=== PATIENT | female | born 1990 | race Caucasian/White ===

== ENCOUNTER → 2017-06-23 | Outpatient (CLI) | payer OTHER ==
--- NOTE | 2017-06-23 22:03 | US ---
EXAMINATION TYPE: US OB >= 14 wk fetus DATE OF EXAM: 06/23/2017 COMPARISON: None CLINICAL HISTORY: 26-year-old female Z36 Confirm dates; TECHNIQUE: Transabdominal (TA) FINDINGS: GESTATIONAL AGE / DATING Physician Established: Not yet established Dates by LMP: (16 weeks/4 days) EDC: 12/04/2017 Dates by First Scan: No previous; this is first scan Dates by Current Scan: (17 weeks/2 days) EDC: 11/29/2017 Beta HCG (if available): NA SURVEY IUP: Single PLACENTA: Posterior PREVIA: No Previa. The caudal placental margin measures approximately 3.7 cm from the internal cervi adolfo os. WESTON: 11.7 cm Normal CERVICAL LENGTH (transabdominal: norm > 3.0cm): 3.4 cm BIOMETRY PRESENTATION: Breech LIE: Oblique BPD: 3.8 cm 17 weeks / 4 days HC: 13.4 cm 16 weeks / 6 days AC: 11.2 cm 17 weeks / 0 days FL: 2.4 cm 17 weeks / 2 days ESTIMATED WEIGHT IN GRAMS: 184.0 grams ESTIMATED WEIGHT IN LBS/OZ: 0 lbs. 6 oz. WEIGHT PERCENTAGE BASED ON ESTABLISHED DATES: 81.4% HC/AC: 1.19 Normal FL/AC: 21.67 Normal HEART RATE: 147 bpm RHYTHM: Normal GEOGRAPHY TEACHER NOTES: Single, live IUP,17 weeks/2 days,EDC: 11/29/2017 , HR 147bpm. IMPRESSION: 1. Single live intrauterine with estimated gestational age of 16 weeks 4 days by LMP. Curre nt ultrasound biometry is larger (17 weeks 2 days) placing the gestation at the 81 percentile for [facility] ght. 2. Slightly low-lying posterior placenta with the placental tip located 3.7 cm from the internal cerv ical os. 3. Complete survey recommended at 18-20 weeks.
== END | disposition home or self-care (01) ==
LOC: RADUSWWP 15:26
PROVIDERS: ATTEND Obstetrics & Gynecology
DX: O44.42 Low lying placenta NOS or without hemorrhage, second trimester (principal); Z3A.16 16 weeks gestation of pregnancy
CPT/HCPCS: 76805

== ENCOUNTER → 2017-07-14 | Outpatient (CLI) | payer OTHER ==
--- NOTE | 2017-07-15 07:47 | US ---
EXAMINATION TYPE: US OB anatomy transabd DATE OF EXAM: 07/14/2017 COMPARISON: US HISTORY: O36.62X0 Second trimester large for dates 2nd trimester anatomy scan, pt has no complaints at this time TECHNIQUE: Transabdominal (TA) EXAM MEASUREMENTS: GESTATIONAL AGE / DATING Physician Established: (19 weeks/3 days) EDC: 12/05/2017 Dates by LMP: (19 weeks/4 days) EDC: 12/04/2017 Dates by First Scan: (20 weeks/2 days) EDC: 11/29/2017 Dates by Current Scan for: (19 weeks/6 days) EDC: 12/02/2017 SURVEY IUP: Single PLACENTA: Posterior PREVIA: No previa WESTON: 15.6 cm Normal CERVICAL LENGTH (transabdominal: norm > 3.0cm): 3.9 cm BIOMETRY PRESENTATION: Breech BPD: 4.5 cm 19 weeks / 5 days HC: 16.9 cm 19 weeks / 4 days AC: 14.6 cm 20 weeks / 0 days FL: 3.1 cm 19 weeks / 5 days ESTIMATED WEIGHT IN GRAMS: 310 grams ESTIMATED WEIGHT IN LBS/OZ: 0 lbs. 11 oz. WEIGHT PERCENTAGE BASED ON ESTABLISHED DATE: 64 % HC/AC: 1.16 Normal FL/AC: 21 Normal HEART RATE: 156 bpm RHYTHM: Normal ANATOMY SEEN (within normal limits): * Lateral Vent (< 1 cm) 0.6 cm * Cisterna Magna (< 1.1 cm) 0.3 cm * Nuchal Fold (< 0.6 cm) 0.3 cm * Cerebellum (varies with age) 1.7 cm Choroid Plexus (bilateral) Midline Falx Cavus Septi Pellucidi Stomach Situs Nose / Lips Diaphragm Kidneys (bilateral) Bladder Cord Insert Three Vessel Cord Longitudinal Spine Transverse Spine Arms (bilateral) Legs (bilateral) ANATOMY NOT SEEN: Four Chamber Heart Outflow tracts: LVOT/RVOT MATERNAL WALL MEASUREMENT: 4.9 cm from skin to anterior uterine wall (if exam limited due to body quinn bitus). Pt returning for OB CALL BACK, July 28 @3:40 p.m. IMPRESSION: 1. Single intrauterine gestation estimated at 19 weeks 6 days gestation based on current ultrasound m easurements. This would have a calculated EDC of 12/02/2017. Cardiac activity measures 156 bpm. 2. Examination is incomplete, patient recalled for additional anatomy visualization.
== END | disposition home or self-care (01) ==
LOC: RADUSWWP 15:39
PROVIDERS: ATTEND Obstetrics & Gynecology
DX: O36.62X0 Maternal care for excessive fetal growth, second trimester, not applicable or unspecified (principal); Z3A.19 19 weeks gestation of pregnancy
CPT/HCPCS: 76811

== ENCOUNTER → 2017-07-28 | Outpatient (CLI) | payer OTHER ==
--- NOTE | 2017-07-29 07:15 | US ---
EXAMINATION TYPE: US OB Call Back DATE OF EXAM: 07/28/2017 COMPARISON: Prior ultrasound exams June 23, 2017 and July 14, 2017. CLINICAL HISTORY: OB CALL BACK. Pt called back for 4 chamber heart and outflow tracts GESTATIONAL AGE / DATING Dates by Initial Survey Scan: (21 weeks/4 days) EDC: 12/04/2017 HEART RATE: 152 bpm RHYTHM: Normal ANATOMY SEEN (second anatomic survey look): Four Chamber Heart: wnl Outflow tracts:? LVOT= wnl ANATOMY STILL NOT SEEN (requiring an additional callback appt): RVOT- fetus spine up and large maternal body habitus Pt returning August 11 @ 12:20 to attempt RVOT images Repeat imaging shows satisfactory visualization of four-chamber heart and left ventricular outflow tr ack during real-time scanning and on still images saved. There is still suboptimal visualization of r ight ventricular outflow tract. IMPRESSION: As above
== END | disposition home or self-care (01) ==
LOC: RADUSWWP 15:35
PROVIDERS: ATTEND Obstetrics & Gynecology
DX: Z03.73 Encounter for suspected fetal anomaly ruled out (principal)

== ENCOUNTER 2017-11-02 10:25 | Outpatient (CLI) | payer OTHER ==
[2017-11-02 12:05] VITALS: BP 133/79; PULSE 83; RESP 16; TEMP 97.4
--- NOTE | 2017-11-04 11:36 | P.MSEPDOC ---
Presenting Problems - Arrival Data Date of Arrival on Unit: 11/02/17 Time of Arrival on Unit: 10:20 Mode of Transport: Ambulatory - Complaint OB-Reason for Admission/Chief Complaint: Possible Onset of Labor Comment: contractions since 129 Medical History - Information : 1 Para: 0 Term: 0 : 0 Abortions: Spontaneous or Elective: 0 Number of Living Children: 0 - Gestational Age Gestational Age by KRISHNA (wks/days): 35 Weeks and 2 Days Review of Systems - Review of Systems Constitutional: No problems Breast: No problems ENT: No problems Cardiovascular: No problems Respiratory: No problems Gastrointestinal: No problems Genitourinary: No problems Musculoskeletal: No problems Neurological: No problems Skin: No problems Vital Signs - Temperature Temperature: 97.4 F Temperature Source: Temporal Artery Scan - Pulse Right Brachial Pulse Rate: 83 Pulse Assessment Method: Automatic Cuff - Respirations Respiratory Rate: 16 Oxygen Delivery Method: Room Air - Blood Pressure Right Arm Blood Pressure: 133/79 Blood Pressure Mean: 97 Blood Pressure Source: Automatic Cuff Medical Screen Scoring (Pre) - Cervical Exam Dilation: 1-3 cm = 1 Membranes: Intact - Uterine Contractions Frequency: > 5 minutes apart = 1 Duration: N/A Intensity: N/A - Maternal Vital Signs Maternal Temperature: N/A Maternal Blood Pressure: N/A Signs of Preeclampsia: N/A Maternal Respirations: N/A - Pain Assessment Pain Location and Character: Back Pain Scale Used: Numeric (1 - 10) Pain Intensity: 7 Pain Description: *Acute Pain Frequency: Intermittent Pain Duration: 5 Pain Duration Units: Hours Pain Behavior: Moving Slowly Pain Aggravating Factors: Contractions - Maternal Trauma Maternal Trauma: N/A - Assessment Baseline FHR: 135 Heart Rate - NICHD Category: Category II (Indeterminate) = 3 Position: N/A Station: N/A - Total Score Total Score (Pre): 5 - Level of Risk Level of Risk: Low (0-5) Physician Notification (Pre) - Physician Notified Physician Notified Date: 11/02/17 Physician Notified Time: 11:24 Physician/Practitioner Notifed:: tez Spoke With: tez New Order Received: Yes - Notification Comment Comment: if no cervical change may be discharged home Disposition - Disposition OB Disposition: Discharge to home Discharge Date: 11/02/17 Discharge Time: 11:51 I agree with the RN Medical Screening Exam: Yes Risk & Benefit of care provided described in d/c instruction: Yes Diagnosis: FALSE LABOR BEFORE 37 COMPLETED WEEKS OF GEST, THIRD TRI
== END 2017-11-02 12:08 | disposition home or self-care (01) ==
LOC: FBPOP 10:25
PROVIDERS: ATTEND Obstetrics & Gynecology
DX: O47.03 False labor before 37 completed weeks of gestation, third trimester (principal); Z3A.35 35 weeks gestation of pregnancy
CPT/HCPCS: 59025; G0463; 99213

== ENCOUNTER 2017-11-27 06:06 | Inpatient (IN) | payer OTHER ==
[2017-11-24 14:30] VITALS: BMI 50.1
[2017-11-27] MEDS ORDERED: CITRIC ACID-SODIUM CITRATE 15 ML CUP PO ONE (06:30)
[2017-11-27] MEDS ORDERED: ceFAZolin 3 GM in SODIUM CHLORIDE 0.9% 100 ML IVPB ONE (06:30)
[2017-11-27] MEDS ORDERED: LACTATED RINGERS 1,000 ML IV ONE (06:30)
[2017-11-27 06:41] LABS: Basophils % (A) 0 %; Eosinophils # (A) 0.1 k/uL (0-0.7); Eosinophils % (A) 1 %; HCT 35.4 % (34.0-46.0); HGB 11.5 gm/dL (11.4-16.0); Lymphocytes # (A) 1.9 k/uL (1.0-4.8); Lymphocytes % (A) 23 %; MCH 24.4 pg (25.0-35.0); MCHC 32.5 g/dL (31.0-37.0); Mean Platelet Volume 9.6; Microcytosis Slight; Monocytes # (A) 0.4 k/uL (0-1.0); Monocytes % (A) 5 %; Neutrophils # (A) 5.6 k/uL (1.3-7.7); Neutrophils % (A) 68 %; Platelet Count 229 k/uL (150-450); RBC 4.71 m/uL (3.80-5.40); RDW 14.4 % (11.5-15.5); WBC 8.2 k/uL (3.8-10.6)
--- NOTE | 2017-11-27 07:30 | P.HPOB ---
History of Present Illness H&P Date: 11/27/17 Chief Complaint: Breech 27 year old presents at 39 weeks for primary low transverse for breech presentation. Review of Systems All systems: negative Constitutional: Denies chills, Denies fever Eyes: denies blurred vision, denies pain Ears, nose, mouth and throat: Denies headache, Denies sore throat Cardiovascular: Denies chest pain, Denies shortness of breath Respiratory: Denies cough Gastrointestinal: Denies abdominal pain, Denies diarrhea, Denies nausea, Denies vomiting Genitourinary: Denies dysuria, Denies hematuria Musculoskeletal: Denies myalgias Integumentary: Denies pruritus, Denies rash Neurological: Denies numbness, Denies weakness Psychiatric: Denies anxiety, Denies depression Endocrine: Denies fatigue, Denies weight change Past Medical History Past Medical History: Asthma, Skin Disorder Additional Past Medical History / Comment(s): PSORIAS History of Any Multi-Drug Resistant Organisms: None Reported Past Surgical History: No Surgical Hx Reported Past Anesthesia/Blood Transfusion Reactions: No Reported Reaction Additional Past Anesthesia/Blood Transfusion Reaction / Comment(s): NO PRIOR SX HX Past Psychological History: Anxiety, Depression Additional Psychological History / Comment(s): NOT ON ANY MEDS AT THIS TIME Smoking Status: Never smoker Past Alcohol Use History: None Reported Past Drug Use History: None Reported - Past Family History Mother Family Medical History: No Reported History Father Family Medical History: Coronary Artery Disease (CAD) Medications and Allergies Home Medications Medication Instructions Recorded Confirmed Type Pnv No.95/Ferrous Fum/Folic AC 1 each PO DAILY 11/24/17 11/27/17 History [ Multivitamin Tablet] Allergies Allergy/AdvReac Type Severity Reaction Status Date / Time No Known Allergies Allergy Verified 11/27/17 06:20 Exam Osteopathic Statement: *. No significant issues noted on an osteopathic structural exam other than those noted in the History and Physical/Consult. Vital Signs Temp Pulse Resp BP 11/27/17 06:20 96.0 F L 77 16 129/84 Intake and Output 11/26/17 11/27/17 11/27/17 22:59 06:59 14:59 Other: Weight 124.284 kg Heart: Regular rate and rhythm Lungs: Clear to auscultation bilaterally Abdomen: Soft, nontender Extremities: Negative Homans sign Results Result Diagrams: 11/27/17 06:29 Abnormal Lab Results - Last 24 Hours (Table) 11/27/17 Range/Units 06:29 MCV 75.0 L (80.0-100.0) fL MCH 24.4 L (25.0-35.0) pg Assessment and Plan (1) Breech presentation Current Visit: Yes Status: Acute Code(s): O32.1XX0 - MATERNAL CARE FOR BREECH PRESENTATION, UNSP SNOMED Code(s): 8547777 (2) 39 weeks gestation of Current Visit: Yes Status: Acute Code(s): Z3A.39 - 39 WEEKS GESTATION OF SNOMED Code(s): 79851751 Plan: 1. Primary low transverse
[2017-11-27] MEDS: LACTATED RINGERS 1,000 ML IV SCH ×4 (08:12→20:00)
[2017-11-27] MEDS ORDERED: DEXAMETHASONE SOD PHOS (MDV) 100 MG/10 ML VIAL ONE (08:46)
[2017-11-27] MEDS ORDERED: MORPHINE SULFATE (PF) 0.3 MG/0.3 ML SYR ONE (08:46)
[2017-11-27] MEDS ORDERED: diphenhydrAMINE 50 MG/ML 1 ML VIAL ONE (08:46)
[2017-11-27] MEDS ORDERED: KETOROLAC 30 MG/ML 1 ML VIAL ONE (08:46)
[2017-11-27] MEDS ORDERED: fentaNYL (PF) 50 MCG/ML 2 ML AMP ONE (08:46)
[2017-11-27] MEDS ORDERED: NALBUPHINE 10 MG/ML VIAL (10ML MDV) ONE (08:46)
[2017-11-27] MEDS ORDERED: ONDANSETRON 4 MG/2 ML VIAL ONE (08:46)
[2017-11-27] MEDS ORDERED: OXYTOCIN 10 UNIT/ML 1 ML VIAL ONE (08:46)
[2017-11-27] MEDS ORDERED: diphenhydrAMINE 50 MG/ML 1 ML VIAL IVP PRN ×2 (09:37)
[2017-11-27] MEDS ORDERED: SIMETHICONE 80 MG CHEWABLE PO PRN (09:37)
[2017-11-27] MEDS ORDERED: LANOLIN CREAM 5 GM TUBE TOPICAL PRN (09:37)
[2017-11-27] MEDS ORDERED: KETOROLAC 30 MG/ML 1 ML VIAL IVP PRN (09:37)
[2017-11-27] MEDS ORDERED: ZOLPIDEM 5 MG TAB PO PRN (09:37)
[2017-11-27] MEDS ORDERED: METOCLOPRAMIDE 5 MG/ML 2 ML VIAL IVP PRN (09:37)
[2017-11-27] MEDS ORDERED: ACETAMINOPHEN TAB 325 MG TAB PO PRN (09:37)
[2017-11-27] MEDS ORDERED: diphenhydrAMINE 25 MG CAP PO PRN (09:37)
[2017-11-27] MEDS ORDERED: Rhogam IMMUNE GLOBULIN 1,500 UNIT/1 ML IM ONE (09:37)
[2017-11-27] MEDS ORDERED: diphenhydrAMINE 50 MG CAP PO PRN (09:37)
[2017-11-27] MEDS ORDERED: ONDANSETRON 4 MG/2 ML VIAL IVP PRN (09:37)
[2017-11-27] MEDS ORDERED: NALOXONE 0.4 MG/ML 1 ML VIAL IV PRN (09:37)
--- NOTE | 2017-11-27 09:44 | P.OP ---
Date of Procedure: 11/27/17 Preoperative Diagnosis: 1. at 39 weeks 2. Breech Postoperative Diagnosis: Same Procedure(s) Performed: Primary low transverse Anesthesia: spinal Surgeon: Isaura Larry [employer]cher #1: Ne Navarro Estimated Blood Loss (ml): 400 IV fluids (ml): 800 Urine output (ml): 100 Pathology: other (Placenta) Condition: stable Disposition: floor Operative Findings: Viable female, Apgars 8, 9, weight 8 lbs. 3 oz. Description of Procedure: Patient was taken to the operating room where spinal anesthesia was found be adequate. She was prepped and draped in normal sterile fashion in dorsal supine position with a leftward tilt. Pfannenstiel skin incision was made the scalpel and carried through to the underlying layer of fascia with the scalpel. Fascia was incised in midline and carried bilaterally with the Ramirez scissors. The superior aspect of the fascial incision was grasped with Terry clamps elevated and the underlying rectus muscles dissected off with the Ramirez's. Attention was then turned to inferior aspect of same incision which in a similar fashion was grasped tented up and the underlying rectus muscles dissected off with the Ramirez's. The rectus muscles were the midline and the peritoneum was identified tented up and entered sharply with the scalpel. The incision was extended superiorly and inferiorly with good visualization of the bladder. The bladder blade was inserted and the vesicouterine peritoneum was incised the Metzenbaums then carried bilaterally and bladder flap created digitally. A low transverse incision was then made on the uterus with the scalpel. This was carried bilaterally and digital manner. Infant was found in a waldemar breech presentation and delivered in the normal breech fashion. Apgars 8,9, weight 8 lbs. 3 oz. Placenta delivered manually, intact with three-vessel cord. The uterus is exteriorized and cleared of all clots and debris. The uterine incision was closed with 0 Vicryl in a running locked fashion. Second layer of the same sutures used in imbricating fashion to obtain excellent hemostasis. Both ovaries and tubes appeared normal. The uterus was placed back into the abdomen. The peritoneum was reapproximated using 2-0 Vicryl in a running fashion. The muscles were reapproximated using 2- 0 Vicryl in interrupted fashion. The fascia was reapproximated using 0 Vicryl in a running fashion. The subcutaneous tissues closed with 3-0 Vicryl running fashion. The skin was closed emma. Patient tolerated the procedure well, sponge and instrument counts were correct times 2 and she was taken to the recovery room in stable condition.
[2017-11-27] MEDS ORDERED: OXYTOCIN 20 UNITS/1000 ML NS 1,000 ML IV SCH (09:45)
[2017-11-27] MEDS ORDERED: MEASLES-MUMPS-RUBELLA VACC/PF 12,500 UNIT/0.5 ML VIAL SQ ONE (15:22)
[2017-11-27] MEDS: SENNOSIDES-DOCUSATE SODIUM 1 EACH TAB PO SCH (22:29)
--- NOTE | 2017-11-28 07:40 | P.PNOBGPC ---
Subjective - Subjective Principal diagnosis: S/P Primary low transverse POD #1 Interval history: Pt seen and examined. Denies N/V, F/C, CP, SOB, calf pain. Patient reports: Reports appetite normal, Reports voiding normally, Reports pain well controlled, Reports ambulating normally [place]: doing well Objective - Vital Signs Latest vital signs: Vital Signs Temp Pulse Resp BP Pulse Ox 11/28/17 04:00 98.1 F 62 16 135/78 98 11/28/17 00:00 98.0 F 53 L 16 124/73 98 11/27/17 20:00 98.2 F 57 L 18 134/77 97 11/27/17 17:46 95.8 F L 54 L 18 119/60 96 11/27/17 16:00 95.8 F L 54 L 18 119/60 96 11/27/17 12:00 98.4 F 57 L 18 115/59 96 11/27/17 11:10 48 L 18 123/61 11/27/17 10:40 51 L 18 108/56 11/27/17 10:25 52 L 18 129/58 98 11/27/17 10:10 51 L 20 142/67 97 11/27/17 09:50 48 L 18 142/67 100 11/27/17 09:35 96.4 F L 59 L 20 153/74 100 Intake and Output 11/27/17 11/28/17 11/28/17 22:59 06:59 14:59 Output Total 1400 750 Balance -1400 -750 Output: Urine 800 750 Estimated Blood Loss 600 Other: # Voids 1 1 - Exam Lungs: bilateral: normal Chest: Normal S1, Normal S2 Extremities: Present: normal Abdomen: Present: normal appearance, soft. Absent: distention, tenderness Incision: Present: normal, dry, intact Uterus: Present: normal, firm Assessment and Plan (1) Breech presentation Current Visit: Yes Status: Resolved Code(s): O32.1XX0 - MATERNAL CARE FOR BREECH PRESENTATION, UNSP SNOMED Code(s): 8270064 (2) 39 weeks gestation of Current Visit: Yes Status: Resolved Code(s): Z3A.39 - 39 WEEKS GESTATION OF SNOMED Code(s): 63868874 (3) Status post primary low transverse section Current Visit: Yes Status: Acute Code(s): Z98.891 - HISTORY OF UTERINE SCAR FROM PREVIOUS SURGERY SNOMED Code(s): 387988401 Plan: 1. increase ambulation 2. po pain meds 3. reg diet
[2017-11-28] MEDS: IBUPROFEN 600 MG TAB PO PRN ×3 (08:01→22:16)
[2017-11-28] MEDS: SENNOSIDES-DOCUSATE SODIUM 1 EACH TAB PO SCH ×2 (08:01→20:14)
[2017-11-28 08:14] LABS: Basophils % (A) 0 %; Eosinophils # (A) 0.1 k/uL (0-0.7); Eosinophils % (A) 1 %; HCT 30.4 % (34.0-46.0); Lymphocytes # (A) 2.1 k/uL (1.0-4.8); Lymphocytes % (A) 27 %; MCH 24.4 pg (25.0-35.0); MCHC 32.5 g/dL (31.0-37.0); MCV 75.2 fL (80.0-100.0); Mean Platelet Volume 9.2; Microcytosis Slight; Monocytes # (A) 0.3 k/uL (0-1.0); Monocytes % (A) 4 %; Neutrophils # (A) 5.3 k/uL (1.3-7.7); Neutrophils % (A) 66 %; Platelet Count 193 k/uL (150-450); RBC 4.04 m/uL (3.80-5.40); RDW 14.3 % (11.5-15.5)
[2017-11-28 08:15] LABS: HGB 9.9 gm/dL (11.4-16.0)
--- NOTE | 2017-11-28 12:21 | P.PN ---
Progress Note - Text Anesthesia POD 1. Patient is status post section under spinal anesthesia with intra-thecal preservative free morphine 300 g. Mild pruritus, good post-op analgesia, and no headache or other complications.
[2017-11-28] MEDS: HYDROcodone/APAP 7.5-325MG 1 EACH TAB PO PRN (18:57)
[2017-11-29] MEDS: HYDROcodone/APAP 7.5-325MG 1 EACH TAB PO PRN (03:44)
--- NOTE | 2017-11-29 07:38 | P.PNOBGPC ---
Subjective - Subjective Principal diagnosis: S/P 1*LTCS POD #2 Interval history: Pt seen and examined. Tolerating regular diet, passing flatus, pain well controlled. She denies nausea, vomiting, chest pain, or calf pain. She is a little bit short of breath when walking around the room. Patient reports: Reports appetite normal, Reports voiding normally, Reports pain well controlled, Reports ambulating normally : doing well Objective - Vital Signs Latest vital signs: Vital Signs Temp Pulse Resp BP Pulse Ox 11/29/17 00:00 98.1 F 61 16 128/81 11/28/17 15:48 98.3 F 69 16 120/66 11/28/17 08:00 98.0 F 67 18 141/67 100 Intake and Output 11/28/17 11/29/17 11/29/17 22:59 06:59 14:59 Other: # Voids 2 2 - Exam Lungs: bilateral: normal Chest: Normal S1, Normal S2 Extremities: Present: normal Abdomen: Present: normal appearance, soft. Absent: distention, tenderness Incision: Present: normal, dry, intact Uterus: Present: normal, firm - Labs Labs: Abnormal Lab Results - Last 24 Hours (Table) 11/28/17 Range/Units 07:52 Hgb 9.9 L D (11.4-16.0) gm/dL Hct 30.4 L (34.0-46.0) % MCV 75.2 L (80.0-100.0) fL MCH 24.4 L (25.0-35.0) pg Assessment and Plan (1) Breech presentation Current Visit: Yes Status: Resolved Code(s): O32.1XX0 - MATERNAL CARE FOR BREECH PRESENTATION, UNSP SNOMED Code(s): 6867376 (2) 39 weeks gestation of Current Visit: Yes Status: Resolved Code(s): Z3A.39 - 39 WEEKS GESTATION OF SNOMED Code(s): 84233740 (3) Status post primary low transverse section Current Visit: Yes Status: Acute Code(s): Z98.891 - HISTORY OF UTERINE SCAR FROM PREVIOUS SURGERY SNOMED Code(s): 096517669 Plan: 1. Continue postoperative care 2. Increase ambulation 3. If she Becomes more symptomatic from the anemia we may consider blood transfusion.
--- NOTE | 2017-11-29 07:43 | P.DS ---
Providers Date of admission: 11/27/17 06:06 Expected date of discharge: 11/29/17 Attending physician: Isaura Larry Primary care physician: Stated None - Discharge Diagnosis(es) (1) Breech presentation Current Visit: Yes Status: Resolved (2) 39 weeks gestation of Current Visit: Yes Status: Resolved (3) Status post primary low transverse section Current Visit: Yes Status: Acute Hospital Course: Patient presented for primary low transverse due to breech presentation. She underwent this procedure without complication. Her postoperative course was uneventful. She'll be discharged home postoperative day #2 in stable condition to follow-up in our office in 2 days for staple removal. I will see her a week after that for incision check. Plan - Discharge Summary Discharge Rx Participant: No New Discharge Prescriptions: No Action Pnv No.95/Ferrous Fum/Folic AC [ Multivitamin Tablet] 1 each PO DAILY Discharge Medication List Pnv No.95/Ferrous Fum/Folic AC [ Multivitamin Tablet] 1 each PO DAILY [History]
[2017-11-29] MEDS: SENNOSIDES-DOCUSATE SODIUM 1 EACH TAB PO SCH (08:27)
[2017-11-29 11:44] VITALS: BP 120/70
[2017-11-29] MEDS: IBUPROFEN 600 MG TAB PO PRN (11:46)
[2017-11-29 15:36] VITALS: PULSE 74; RESP 16; TEMP 98.7
== END 2017-11-29 18:10 | disposition home or self-care (01) | DRG 766 ==
LOC: 4FBP 06:06
PROVIDERS: ADMIT Obstetrics & Gynecology; ATTEND Obstetrics & Gynecology
PROC: 3E0134Z Introduction of Serum, Toxoid and Vaccine into Subcutaneous Tissue, Percutaneous Approach (ICD-10-PCS; 2017-11-27)
PROC: 3E0234Z Introduction of Serum, Toxoid and Vaccine into Muscle, Percutaneous Approach (ICD-10-PCS; 2017-11-27)
PROC: 10D00Z1 Extraction of Products of Conception, Low, Open Approach (ICD-10-PCS; principal; 2017-11-27 08:45)
DX: O32.1XX0 Maternal care for breech presentation, not applicable or unspecified (principal); O26.893 Other specified pregnancy related conditions, third trimester; Z67.41 Type O blood, Rh negative; J45.909 Unspecified asthma, uncomplicated; O99.52 Diseases of the respiratory system complicating childbirth; Z3A.39 39 weeks gestation of pregnancy; Z37.0 Single live birth; Z23 Encounter for immunization; O99.344 Other mental disorders complicating childbirth; F32.9 Major depressive disorder, single episode, unspecified; F41.9 Anxiety disorder, unspecified; L40.9 Psoriasis, unspecified; Z79.899 Other long term (current) drug therapy; Z82.49 Family history of ischemic heart disease and other diseases of the circulatory system; Z80.8 Family history of malignant neoplasm of other organs or systems; Z83.49 Family history of other endocrine, nutritional and metabolic diseases; Z84.2 Family history of other diseases of the genitourinary system
CPT/HCPCS: 85025; 85461; 86850; 86900; 86901; 90707

== ENCOUNTER 2019-02-05 04:16 | Emergency (ER) | payer OTHER ==
[2019-02-05 04:31] VITALS: RESP 18; TEMP 97.9
[2019-02-05 05:22] LABS: Basophils # (A) 0.1 k/uL (0-0.2); Basophils % (A) 1 %; Eosinophils # (A) 0.5 k/uL (0-0.7); Eosinophils % (A) 6 %; HCT 40.5 % (34.0-46.0); HGB 12.2 gm/dL (11.4-16.0); Lymphocytes # (A) 2.1 k/uL (1.0-4.8); Lymphocytes % (A) 26 %; MCH 24.1 pg (25.0-35.0); MCHC 30.3 g/dL (31.0-37.0); MCV 79.7 fL (80.0-100.0); Mean Platelet Volume 9.1; Monocytes # (A) 0.5 k/uL (0-1.0); Monocytes % (A) 6 %; Neutrophils # (A) 4.9 k/uL (1.3-7.7); Neutrophils % (A) 60 %; Platelet Count 311 k/uL (150-450); RBC 5.07 m/uL (3.80-5.40); RDW 14.3 % (11.5-15.5); WBC 8.2 k/uL (3.8-10.6)
--- NOTE | 2019-02-05 05:27 | XR ---
EXAM: XR Chest, 2 Views CLINICAL HISTORY: Chest Pain TECHNIQUE: Frontal and lateral views of the chest. COMPARISON: No relevant prior studies available. FINDINGS: Lungs: Mild peribronchial cuffing may represent mild pulmonary interstitial edema and/or infectious versus inflammatory airways disease. Pleural space: Unremarkable. No pneumothorax. Heart: Unremarkable. No cardiomegaly. Mediastinum: Unremarkable. Bones/joints: Unremarkable. IMPRESSION: Mild peribronchial cuffing may represent mild pulmonary interstitial edema and/or infectious versus inflammatory airways disease.
[2019-02-05 05:47] LABS: ALT 12 U/L (9-52); AST 19 U/L (14-36); African American GFR (CKD) >90 (>60 ml/min/1.73 sqM); Alkaline Phosphatase 71 U/L (38-126); Anion Gap 11 mmol/L; Blood Urea Nitrogen 15 mg/dL (7-17); Calcium 9.8 mg/dL (8.4-10.2); Carbon Dioxide 24 mmol/L (22-30); Chloride 106 mmol/L (98-107); Glucose 97 mg/dL (74-99); Magnesium 1.9 mg/dL (1.6-2.3); Potassium 4.1 mmol/L (3.5-5.1); Sodium 141 mmol/L (137-145); Total Bilirubin 0.6 mg/dL (0.2-1.3); Total Protein 7.2 g/dL (6.3-8.2)
[2019-02-05 05:55] LABS: D-Dimer 0.19 mg/L FEU (<0.60); Partial Thromboplastin Time 27.8 sec (22.0-30.0); Prothrombin Time 10.3 sec (9.0-12.0)
[2019-02-05 06:13] VITALS: BP 124/77; PULSE 56
--- NOTE | 2019-02-05 06:43 | ED ---
Chest Pain HPI - General Chief Complaint: Chest Pain Stated Complaint: Chest pain Source: patient Mode of arrival: ambulatory Limitations: no limitations - History of Present Illness Initial Comments: Celsa is a 28-year-old female presents the emergency department this morning for reevaluation of chest pain. Patient reports she woke from her sleep in the middle of night with chest pain, due to a strong family history of heart disease she felt very anxious and contacted EMS who arrived on scene didn't EKG advised her that she is mildly hypertensive and she should have further workup. However she declined transport hospital at that time. Patient and decided she should come to the hospital and her drove her in for further evaluation of her chest pain which had resolved upon EMSs evaluation. Patient states she does also suffer from anxiety and does feel that possibly she was having an anxiety attack that she would know what provoked it as it started while she was sleeping. Patient denies any exertional chest pain shortness of breath diaphoresis or lightheadedness. She reports that she woke having sharp pain in her chest, she contacted EMS she felt better after the EKG and she's had no symptoms since that time. - Related Data Home Medications Medication Instructions Recorded Confirmed Pnv No.95/Ferrous Fum/Folic AC 1 each PO DAILY 11/24/17 11/27/17 [ Multivitamin Tablet] Previous Rx's Medication Instructions Recorded HYDROcodone/APAP 7.5-325MG [[place] 1 each PO Q4H PRN #18 tab 11/29/17 7.5-325] Ibuprofen [Motrin] 600 mg PO Q6HR PRN #30 tab 11/29/17 Allergies Allergy/AdvReac Type Severity Reaction Status Date / Time No Known Allergies Allergy Verified 02/05/19 04:32 Review of Systems ROS Statement: Those systems with pertinent positive or pertinent negative responses have been documented in the HPI. ROS Other: All systems not noted in ROS Statement are negative. EKG Findings - EKG Comments: EKG Findings:: EKG was obtained due to complaint of chest pain, EKG was obtained at 4:33 AM, rate is 64 rhythm is sinus there is normal axis, there are normal intervals, OK 172, care is 100, QTC is 414 there are no acute ST elevations or depressions there is no evidence of acute ischemia or infarction. Past Medical History Past Medical History: Asthma, Skin Disorder Additional Past Medical History / Comment(s): PSORIAS History of Any Multi-Drug Resistant Organisms: None Reported Past Surgical History: No Surgical Hx Reported Past Anesthesia/Blood Transfusion Reactions: No Reported Reaction Additional Past Anesthesia/Blood Transfusion Reaction / Comment(s): NO PRIOR SX HX Past Psychological History: Anxiety, Depression Smoking Status: Never smoker Past Alcohol Use History: None Reported Past Drug Use History: None Reported - Past Family History Mother Family Medical History: No Reported History Father Family Medical History: Coronary Artery Disease (CAD) General Exam - General Exam Comments Initial Comments: Physical Exam GENERAL: Patient is well-developed and well-nourished. Patient is nontoxic and well-hydrated and is in no distress. HENT: Normocephalic, Atraumatic. EYES: PERRL, EOMI PULMONARY: Unlabored respirations. No audible rales rhonchi or wheezing was noted. CARDIOVASCULAR: There is a regular rate and rhythm without any murmurs gallops or rubs. Warm and well perfused extremities ABDOMEN: Soft and nontender with normal bowel sounds. SKIN: Skin is clear with no lesions or rashes and otherwise unremarkable. : Deferred NEUROLOGIC: Patient is alert and oriented x3. Moving all extremities spontaneously MUSCULOSKELETAL: Normal extremities with adequate strength and full range of motion. No lower extremity swelling or edema. No calf tenderness. PSYCHIATRIC: Normal psychiatric evaluation. Limitations: no limitations Course Vital Signs 02/05/19 02/05/19 04:25 06:08 Temperature 97.9 F Pulse Rate 72 56 L Respiratory 18 18 Rate Blood Pressure 134/81 124/77 O2 Sat by Pulse 100 98 Oximetry Chest Pain [facility] The patient was seen and evaluated history was obtained from the patient and at bedside This is a 28-year-old female with no cardiac history presenting with burning retrosternal pain that woke her from sleep and resolved upon getting up. Had a normal EKG for EMS Cardiac workup was initiated including a d-dimer Labs were completely normal patient has been a symptomatically throughout her stay in the emergency department. Results were discussed with the patient who expresses relief and states that she believes she was just having an anxiety attack or possibly acid reflux. Prevention of acid reflux measures were discussed. All questions pertaining care were answered return parameters were as this patient will follow-up with her primary care physician. Disposition Clinical Impression: Atypical chest pain Disposition: HOME SELF-CARE Condition: Stable Instructions (If sedation given, give patient instructions): Chest Pain (DC) Is patient prescribed a controlled substance at d/c from ED?: No Referrals: Nonstaff,Physician [Primary Care Provider] - 1-2 days
== END 2019-02-05 06:57 | disposition home or self-care (01) ==
LOC: EC 04:16
DX: R07.89 Other chest pain (principal)
CPT/HCPCS: 36415; 71046; 80053; 83735; 84484; 85025; 85379; 85610; 85730; 93005; 99285

== ENCOUNTER → 2021-06-12 | Outpatient (CLI) | payer BC ==
--- NOTE | 2021-06-13 14:13 | ECHOS ---
STRESS ECHOCARDIOGRAM DATE OF STUDY: 06/13/2021 INDICATIONS: Chest pain. BASELINE HEART RATE: 89 BASELINE BLOOD PRESSURE: 5'2" MAXIMUM HEART RATE: 178 MAXIMUM BLOOD PRESSURE: 181/78 85% MPHR: 161 100% MPHR: 189 METS: 5.3 MAXIMUM STAGE REACHED: 2 TOTAL EXERCISE TIME: 6 CLINICAL INFORMATION: STRESS DATA: Heart rate 89, pressure 147/77 mmHg. Baseline EKG showed sinus mechanism. The patient exercised on the treadmill according to Miguel protocol for a total of 6 minutes and achieved 5.3 METS with max heart rate of 179, which is about 94% of maximum predicted heart rate. Maximum blood pressure was 170/47 mmHg. Clinically the patient did not have any symptoms of chest pain or chest discomfort during the testing or on recovery. The EKG did not show any significant ST or T-wave abnormalities concerning for ischemia. ANALYSIS: Echocardiogram images from parasternal long axis view, parasternal short axis view, apical 4-chamber and apical 2-chamber views were obtained as the baseline images at the peak of the heart rate as well as on recovery. The echocardiogram images did not show any evidence of wall motion abnormalities concerning for ischemia. CONCLUSION: 1. Good exercise tolerance. 2. Normal EKG in response to exercise. 3. Normal echocardiogram in response to exercise. MMODL / IJN: [id number] /
== END | disposition home or self-care (01) ==
LOC: RADNMMAIN 08:52
PROVIDERS: ATTEND Family Medicine
DX: R07.89 Other chest pain (principal)
CPT/HCPCS: 93351

== ENCOUNTER → 2022-07-27 | Outpatient (CLI) | payer BC ==
[2022-07-27 22:23] LABS: Basophils # (A) 0.04 X 10*3/uL (0.00-0.10); Basophils % (A) 0.6 %; Eosinophils # (A) 0.21 X 10*3/uL (0.04-0.35); HCT 44.8 % (37.2-46.3); HGB 13.6 g/dL (12.0-15.0); Immature Grans, Automated 0.3 %; Lymphocytes # (A) 2.01 X 10*3/uL (0.90-5.00); Lymphocytes % (A) 29.2 %; MCH 23.9 pg (27.0-32.0); MCHC 30.4 g/dL (32.0-37.0); MCV 78.6 fL (80.0-97.0); Mean Platelet Volume 12.2 fL (9.5-12.2); Monocytes # (A) 0.36 X 10*3/uL (0.20-1.00); Monocytes % (A) 5.2 %; NRBC Per 100 WBC 0 /100 WBCS (0.0-0.0); Neutrophils # (A) 4.25 X 10*3/uL (1.80-7.70); Neutrophils % (A) 61.7 %; Platelet Count 374 X 10*3/uL (140-440); RDW 14.5 % (11.5-14.5); WBC 6.89 X 10*3/uL (4.50-10.00)
[2022-07-27 22:46] LABS: African American GFR (CKD) 135.2 (60.0-200.0); Albumin 4.5 g/dL (3.8-4.9); Albumin/Globulin Ratio 1.59 (1.60-3.17); BUN/Creat Ratio 11.81 Ratio (12.00-20.00); Blood Urea Nitrogen 7.8 mg/dL (9.0-27.0); Calcium 9.7 mg/dL (8.7-10.3); Carbon Dioxide 27.1 mmol/L (20.0-27.5); Globulin 2.9 g/dL (1.6-3.3); Non-African American GFR(CKD) 116.7 (60.0-200.0); Potassium 4.8 mmol/L (3.5-5.5); Total Bilirubin 0.3 mg/dL (0.30-1.20); Total Protein 7.4 g/dL (6.2-8.2)
[2022-07-27 23:09] LABS: Hepatitis B Surface AB- Quant 3.5 mIU/mL; Hepatitis B Surface Antibody Nonreactive (Nonreactive)
[2022-07-27 23:19] LABS: Hepatitis B Surface Antigen Nonreactive (Nonreactive); Hepatitis C IgG Antibody Nonreactive (Nonreactive)
[2022-07-28 00:06] LABS: HIV 2 AB Non-Reactive (Non-Reactive); HIV AB P24 Non-Reactive (Non-Reactive); HIV P24 AG Non-Reactive (Non-Reactive)
== END | disposition home or self-care (01) ==
LOC: LABWHC1 12:29
PROVIDERS: ATTEND Physician Assistant
DX: L40.0 Psoriasis vulgaris (principal); Z79.899 Other long term (current) drug therapy
CPT/HCPCS: 36415; 80053; 85025; 86480; 86704; 86706; 86803; 87340; 87390

== ENCOUNTER → 2022-10-27 | Outpatient (CLI) | payer BC ==
[2022-10-27 15:58] LABS: Basophils # (A) 0.05 X 10*3/uL (0.00-0.10); Basophils % (A) 0.7 %; Eosinophils # (A) 0.25 X 10*3/uL (0.04-0.35); Eosinophils % (A) 3.5 %; HCT 43.9 % (37.2-46.3); HGB 13.2 d/dL (12.0-15.0); Lymphocytes # (A) 2.23 X 10*3/uL (0.90-5.00); Lymphocytes % (A) 31.2 %; MCH 23.6 pg (27.0-32.0); MCHC 30.1 d/dL (32.0-37.0); MCV 78.5 FL (80.0-97.0); Mean Platelet Volume 11.9 FL (9.5-12.2); Monocytes % (A) 8.4 %; NRBC Per 100 WBC 0 X 10*3/uL (0.00-0.01); Neutrophils # (A) 4.01 X 10*3/uL (1.80-7.70); Neutrophils % (A) 56.1 %; Platelet Count 330 X 10*3/uL (140-440); RBC 5.59 X 10*6/uL (4.10-5.20); RDW 14.6 % (11.5-14.5); WBC 7.15 X 10*3/uL (4.50-10.00)
== END | disposition home or self-care (01) ==
LOC: LABWHC1 08:43
PROVIDERS: ATTEND Family Medicine
DX: F64.9 Gender identity disorder, unspecified (principal)
CPT/HCPCS: 36415; 84403; 85025

== ENCOUNTER → 2023-05-10 | Outpatient (CLI) | payer BC ==
[2023-05-10 15:06] LABS: HCT 45.8 % (37.2-46.3); HGB 14.7 g/dL (12.0-15.0); MCH 24.9 pg (27.0-32.0); MCHC 32.1 g/dL (32.0-37.0); MCV 77.6 FL (80.0-97.0); NRBC Per 100 WBC 0 X 10*3/uL (0.00-0.01); Platelet Count 388 X 10*3/uL (140-440); RDW 13.8 % (11.5-14.5); WBC 8.07 X 10*3/uL (4.50-10.00)
[2023-05-10 15:07] LABS: Basophils # (A) 0.04 X 10*3/uL (0.00-0.10); Basophils % (A) 0.5 %; Eosinophils # (A) 0.24 X 10*3/uL (0.04-0.35); Lymphocytes # (A) 2.01 X 10*3/uL (0.90-5.00); Lymphocytes % (A) 24.9 %; Monocytes # (A) 0.55 X 10*3/uL (0.20-1.00); Monocytes % (A) 6.8 %; Neutrophils # (A) 5.21 X 10*3/uL (1.80-7.70); Neutrophils % (A) 64.6 %
== END | disposition home or self-care (01) ==
LOC: LABWHC1 08:30
PROVIDERS: ATTEND Family Medicine
DX: F41.9 Anxiety disorder, unspecified (principal)
CPT/HCPCS: 36415; 82306; 84403; 84443; 85025